=== PATIENT | male | born 1965 | race Caucasian/White ===

== ENCOUNTER 2024-10-24 16:02 | Emergency (ER) | payer OTHER ==
[~2024-10-24] VITALS: Ht 172.7 cm; Wt 80.0 kg
[2024-10-24 16:04] VITALS: O2SAT 99
[2024-10-24 16:30] VITALS: BP 106/67; PULSE 99; RESP 18; TEMP 36.8; O2SAT 99
[2024-10-24] MEDS: ASPIRIN 81MG TABLET PO NR (16:35)
== END 2024-10-24 16:57 | disposition left against medical advice (07) ==
LOC: ER 16:02
DX: R07.89 Other chest pain (principal); I48.91 Unspecified atrial fibrillation; J44.89 Other specified chronic obstructive pulmonary disease; I50.9 Heart failure, unspecified; D45 Polycythemia vera; Z53.29 Procedure and treatment not carried out because of patient's decision for other reasons; Z98.890 Other specified postprocedural states
CPT/HCPCS: 99283; A4606